=== PATIENT | male | born 1955 | race Caucasian/White ===

== ENCOUNTER 2018-11-21 06:25 | Day surgery (SDC) | payer OTHER ==
[2018-11-21] MEDS ORDERED: Ketamine HCl 50 MG/ML IV ONE (06:26)
[2018-11-21] MEDS ORDERED: ROBINUL IV ONE (06:26)
[2018-11-21] MEDS ORDERED: DIPRIVAN 200 MG/20 ML IV ONE (06:26)
[2018-11-21] MEDS ORDERED: Lactated Ringers 1,000 ML IV SCH (07:00)
[2018-11-21 09:47] VITALS: O2SAT 94
[2018-11-21 10:00] VITALS: BP 124/70; PULSE 52
--- NOTE | 2018-11-23 09:41 | HP ---
DATE OF SURGERY: 11/21/2018 ANTICIPATED PROCEDURE: Colonoscopy. HISTORY OF PRESENT ILLNESS: A patient requiring colonoscopy. Five year follow up for polyps. PAST MEDICAL HISTORY: ALLERGIES: NONE. MEDICATIONS: Crestor, hydrochlorothiazide, omeprazole, Bystolic. PAST SURGICAL HISTORY: None. SOCIAL HISTORY: Negative. FAMILY HISTORY: Negative. REVIEW OF SYSTEMS: Hypertension controlled. PHYSICAL EXAMINATION: VITAL SIGNS: Normal. CHEST: Clear. COR: Regular. ABDOMEN: No palpable organomegaly or mass. IMPRESSION: Five year screening for polyps. PLAN: Colonoscopy.
--- NOTE | 2018-11-23 10:14 | OP ---
SURGERY DATE/TIME: 11/21/2018 0848 PREOPERATIVE DIAGNOSIS: Five year follow up of polyps. POSTOPERATIVE DIAGNOSES: 1) One polyp distal sigmoid 8 mm. 2) Additional findings moderate almost severe diverticulosis of the sigmoid. PROCEDURE: Colonoscopy complete to cecum with hot polypectomy x1. SURGEON: Matheus Hummel M.D. ANESTHESIA: MAC. COMPLICATIONS: None. CONDITION: Stable. INDICATION: A patient presents for five year follow up, previous history of polyps. DESCRIPTION OF PROCEDURE: Taken to endoscopy. Anal digital examination satisfactory. Prostate satisfactory. Scope advanced to the cecum. The sigmoid was quite angulated and there was moderate almost severe diverticulosis of the sigmoid. Base of cecum, ileocecal valve and appendiceal orifice normal. Ascending, hepatic, transverse, splenic, descending, sigmoid other than diverticulosis sigmoid was satisfactory until the sigmoid-rectal junction. In the distal sigmoid there was an 8 mm polyp picked up and taken to extinction. [facility] [employer] Tender sample submitted. Rectum and anus satisfactory. The patient tolerated the procedure satisfactorily under MAC sedation. Anticipate to see in two weeks for pathology on the polyp and five year follow up on the colon.
== END 2018-11-21 10:00 | disposition home or self-care (01) ==
LOC: SDC 06:25
PROVIDERS: ATTEND Surgery
DX: Z12.11 Encounter for screening for malignant neoplasm of colon (principal); K57.32 Diverticulitis of large intestine without perforation or abscess without bleeding; K51.40 Inflammatory polyps of colon without complications; Z86.010 Personal history of colon polyps
CPT/HCPCS: J2704

== ENCOUNTER 2024-02-12 07:48 | Day surgery (SDC) | payer MEDICARE ==
--- NOTE | 2024-02-10 10:46 | HP ---
HISTORY AND PHYSICAL HISTORY OF PRESENT ILLNESS: The patient is a 68-year-old male who presents with a history of colon polyps. The patient recently found out to be BRCA positive and he complained of a right breast pain for a couple of weeks. His mother and his sisters both had breast cancer. He also has a daughter that is BRCA positive. The patient also has a personal history of melanoma. His last colonoscopy was 5 years ago. He had colon polyps. PAST MEDICAL HISTORY: GERD, hypertension, hyperlipidemia. HOME MEDICATIONS: Repatha, potassium, valsartan, amlodipine, nebivolol, omeprazole, spironolactone. ALLERGIES: Negative. PAST SURGICAL HISTORY: Left knee surgery. SOCIAL HISTORY: Daily alcohol. FAMILY HISTORY: Breast cancer, lung cancer, skin cancer. REVIEW OF SYSTEMS: CONSTITUTIONAL: Denies fevers or chills. CHEST: Denies shortness of breath. CARDIOVASCULAR: Denies any chest pain. ABDOMEN: Denies abdominal pain. PHYSICAL EXAMINATION: GENERAL: No acute distress. CHEST: Non-labored. No shortness of breath. CARDIOVASCULAR: Regular rate and rhythm. ABDOMEN: Soft. IMPRESSION: History of colon polyps and he had breast pain and he was BRCA positive. PLAN: We did order a mammogram and an ultrasound of his breast. This report was dictated for Dr. Hummel by Katie Adan NP.
[2024-02-12] MEDS: Lactated Ringers 1,000 ML IV SCH (07:53)
[2024-02-12 08:05] VITALS: RESP 16
[2024-02-12] MEDS ORDERED: Xylocaine-Mpf 2% 5 Ml Vial ONE (10:34)
[2024-02-12] MEDS ORDERED: DIPRIVAN 200 MG/20 ML IV ONE ×2 (10:34→11:22)
[2024-02-12] MEDS ORDERED: Versed 2 MG/2 ML Injection ONE (10:34)
[2024-02-12] MEDS ORDERED: GlucaGen 1 MG ONE (10:44)
[2024-02-12 11:28] VITALS: O2SAT 97
[2024-02-12 11:44] VITALS: BP 151/73; PULSE 50; TEMP 97.2
--- NOTE | 2024-02-13 13:44 | OP ---
SURGERY DATE/TIME: 02/12/2024 7302 - [id number] PREOPERATIVE DIAGNOSIS: Follow up polyps. POSTOPERATIVE DIAGNOSIS: One polyp, 3 mm, cecal. Additional diagnosis, the patient had severe sigmoid diverticulosis. PROCEDURE: Colonoscopy completed to the cecum with hot polypectomy x1. SURGEON: Matheus Hummel MD ANESTHESIA: MAC, general. COMPLICATIONS: None. CONDITION: Stable. DESCRIPTION OF PROCEDURE AND FINDINGS: Patient taken to endoscopy. MAC, general provided. Anal digital tone was satisfactory. Anus was satisfactory. Rectum was satisfactory. Sigmoid is totally lined with diverticula and some angulation with care and patience it was navigated. Descending colon was normal. Descending, transverse, ascending, base of the cecum, ileocecal valve, appendiceal orifice were initially normal. There was a 3 mm polyp on the cecum that was taken with a hot biopsy forceps. Ascending, hepatic, transverse, splenic, descending, sigmoid, rectum, anus severe sigmoid diverticulosis is noted. Patient tolerated the procedure well. Follow up in 3 years.
== END 2024-02-12 11:50 | disposition home or self-care (01) ==
LOC: SDC 07:48
PROVIDERS: ATTEND Surgery
DX: Z09 Encounter for follow-up examination after completed treatment for conditions other than malignant neoplasm (principal); Z86.010 Personal history of colon polyps; Z80.3 Family history of malignant neoplasm of breast; Z80.1 Family history of malignant neoplasm of trachea, bronchus and lung; Z80.8 Family history of malignant neoplasm of other organs or systems; K63.5 Polyp of colon; K57.30 Diverticulosis of large intestine without perforation or abscess without bleeding
CPT/HCPCS: J1610; J2250; J2704

== ENCOUNTER 2024-07-29 06:22 | Day surgery (SDC) | payer MEDICARE, OTHER ==
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
[2024-07-29] MEDS: Lactated Ringers 1,000 ML IV SCH (06:52)
[2024-07-29] MEDS: MEFOXIN 2 GM PREMIX** 2 GM/50 ML ML IV SCH (06:52)
[2024-07-29] MEDS: celeBREX 100 MG PO ONE (06:53)
[2024-07-29] MEDS: TYLENOL EXTRA STRENGTH 500 MG PO ONE (06:53)
[2024-07-29] MEDS: Decadron 4 MG PO ONE (06:53)
[2024-07-29] MEDS: NEURONTIN PO ONE (06:53)
[2024-07-29 07:12] LABS: Hematocrit 42.9 % (40.1-51.0); Hemoglobin 14.9 g/dL (13.7-17.5); Mean Cell Volume 87.4 fL (79.0-92.2); Mean Corpuscular Hemoglobin 30.3 pg (25.7-32.2); Mean Corpuscular Hgb Concent. 34.7 g/dL (32.3-36.5); Mean Platelet Volume 11.3 fL (9.4-12.4); Platelet Count 209 x10^3/uL (163-337); Red Blood Count 4.91 x10^6/uL (4.63-6.08); Red Cell Distribution Width 11.8 % (11.6-14.4); White Blood Count 5.7 x10^3/uL (4.23-9.07)
[2024-07-29 07:18] VITALS: RESP 16
[2024-07-29 07:26] LABS: ALBUMIN 4.3 g/dL (3.5-5.0); ANION GAP 9.1 MEQ/L (5-15); BILIRUBIN,TOTAL 0.8 mg/dL (0.2-1.3); Calcium 9.3 mg/dL (8.4-10.2); Creatinine 1 1.01 mg/dL (0.66-1.25); Direct Bilirubin 0.2 mg/dL (0.0-0.4); EST GLOMERULAR FILTRATION RATE 80.5 ML/MIN; Potassium 3.5 mmol/L (3.5-5.1); Total Protein 7.1 g/dL (6.3-8.2)
[2024-07-29] MEDS ORDERED: propofoL IV ONE (08:17)
[2024-07-29] MEDS ORDERED: SUBLIMAZE 100 MCG/2 ML ONE ×3 (08:25→10:18)
[2024-07-29] MEDS ORDERED: Zofran 4 MG/2 ML VIAL ONE (08:28)
[2024-07-29] MEDS ORDERED: ROCURONIUM BROMIDE IV ONE (08:28)
[2024-07-29] MEDS ORDERED: Sensorcaine 0.25% 10 ML ONE ×2 (08:32→09:26)
[2024-07-29] MEDS ORDERED: Sodium Chloride 0.9% 1000 ML 1,000 ML ONE (08:32)
[2024-07-29] MEDS ORDERED: Lactated Ringers 1,000 ML IV ONE (09:18)
[2024-07-29] MEDS ORDERED: ROBINUL ONE (09:24)
[2024-07-29] MEDS ORDERED: BRIDION 200MG/2ML IV ONE (09:51)
[2024-07-29] MEDS ORDERED: Hydromorphone 1 mg/ml Injection ONE (10:48)
[2024-07-29 12:01] VITALS: TEMP 97.2
[2024-07-29 12:12] VITALS: BP 151/80; PULSE 92; O2SAT 93
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
== END 2024-07-29 12:20 | disposition home or self-care (01) ==
LOC: SDC 06:22
PROVIDERS: ATTEND Surgery
DX: N20.2 Calculus of kidney with calculus of ureter (principal); K76.0 Fatty (change of) liver, not elsewhere classified
CPT/HCPCS: 36415; 80048; 80076; 85027; 93005; J0694; J1171; J2405; J2704; J3010; L0625; A9270-GY

== ENCOUNTER 2024-10-28 09:54 | Day surgery (SDC) | payer MEDICARE, OTHER ==
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
[2024-10-28] MEDS ORDERED: NEURONTIN ONE (10:15)
[2024-10-28] MEDS ORDERED: CEFOXITIN IV ONE (10:15)
[2024-10-28] MEDS ORDERED: celeBREX 100 MG ONE (10:15)
[2024-10-28] MEDS ORDERED: Decadron 4 MG ONE (10:15)
[2024-10-28] MEDS ORDERED: NACL IV ONE (10:15)
[2024-10-28] MEDS ORDERED: TYLENOL EXTRA STRENGTH 500 MG ONE (10:15)
[2024-10-28] MEDS ORDERED: Lactated Ringers 1,000 ML IV ONE (10:16)
[2024-10-28] MEDS: TYLENOL EXTRA STRENGTH 500 MG PO ONE (10:25)
[2024-10-28] MEDS: NEURONTIN PO ONE (10:25)
[2024-10-28] MEDS: Decadron 4 MG PO ONE (10:25)
[2024-10-28] MEDS: celeBREX 100 MG PO ONE (10:26)
[2024-10-28] MEDS: Lactated Ringers 1,000 ML IV ONE (10:29)
[2024-10-28] MEDS: CEFAZOLIN 2 GM/100 ML NaCl 2 GM/100 ML IVPB IV SCH (10:30)
[2024-10-28 11:12] LABS: Creatinine 1 0.82 mg/dL (0.66-1.25); EST GLOMERULAR FILTRATION RATE 95.1 ML/MIN; Potassium 3.6 mmol/L (3.5-5.1)
[2024-10-28] MEDS ORDERED: propofoL IV ONE (12:38)
[2024-10-28] MEDS ORDERED: SUBLIMAZE 100 MCG/2 ML ONE ×2 (12:43→13:47)
[2024-10-28] MEDS ORDERED: ROCURONIUM BROMIDE IV ONE (12:45)
[2024-10-28] MEDS ORDERED: Zofran 4 MG/2 ML VIAL ONE (12:45)
[2024-10-28] MEDS ORDERED: dexAMETHasone sodium phosphate ONE (12:45)
[2024-10-28] MEDS ORDERED: Sensorcaine 0.25% 10 ML ONE (13:07)
[2024-10-28] MEDS ORDERED: TRANDATE 20 MG/4 ML SYRINGE IV ONE (13:15)
[2024-10-28] MEDS ORDERED: BRIDION 200MG/2ML IV ONE (14:18)
[2024-10-28 15:50] VITALS: PULSE 61; RESP 16
[2024-10-28 16:07] VITALS: BP 191/102; O2SAT 94
[2024-10-28 16:13] VITALS: TEMP 97.2
--- NOTE | 2024-10-29 12:14 | OP ---
SURGERY DATE/TIME: 10/28/2024 [id number] PREOPERATIVE DIAGNOSIS: Bilateral subareolar nipple masses with strong family history for positive breast carcinoma genetics. POSTOPERATIVE DIAGNOSIS: Bilateral subareolar nipple masses with strong family history for positive breast carcinoma genetics. PROCEDURE: Bilateral mastectomy including nipple, areola, small ellipse of skin, and all the existing breast tissue. This was bilateral. SURGEON: Matheus Hummel MD ACCOUNTING INTERN: Medical Student 3. ANESTHESIA: General. COMPLICATIONS: None. CONDITION: Stable. DRAINS: None. INDICATIONS: The patient has developed painful bilateral breast buds. He has stopped some of his medication. He has had quite a bit of patience with this. They are still present. They are pick pulling machine tender. He also has a severe family history of breast cancer genetics. With this in mind, we would like to proceed with bilateral total or bilateral simple mastectomies including all the breast tissue and including the areola and nipple, not specifically including any lymph nodes, although often times the lymph node is still incidentally removed with a total mastectomy. He is aware of this and he knows that the nipples and areolas will be gone and technically he will be cosmetically flat. He is not very appalled by this. He does wear a t-shirt in the summer when he is out at all for skin protection anyway, so he is really not very concerned. DESCRIPTION OF PROCEDURE AND FINDINGS: Both breasts were marked. He was taken to surgery, general anesthetic, he was prepped and draped, time-out performed. Right side addressed first. Elliptical flaps have been marked on both sides so that they would be symmetrical. Skin, subcutaneous, Naresh ligaments were taken and the subcutaneous was from the breast tissue. The axillary envelope had been completed at this time. The fascia was scored and the breast and the fascia was rolled from cephalad-caudad, left to right and from right to left until the entire breast bud was removed. The right side skin was . Hemostasis satisfactory. Closed with inverting 3-0 Vicryl and glue. Very similar to dissection on the left, similar skin flap had been marked. Similar dissection. It was elevated upward. Hemostasis was excellent. It was irrigated. It was closed with inverting 3-0 Vicryl and glue. Sterile dressing applied. Binder applied. The patient tolerated the procedure satisfactorily. Findings discussed with the and daughters in the waiting room, was very satisfactory and encouraging.
== END 2024-10-28 16:18 | disposition home or self-care (01) ==
LOC: SDC 09:54
PROVIDERS: ATTEND Surgery
DX: N63.42 Unspecified lump in left breast, subareolar (principal); N63.41 Unspecified lump in right breast, subareolar; Z80.3 Family history of malignant neoplasm of breast
CPT/HCPCS: 36415; 80048; J0690; J0694; J1100; J2405; J2704; J3010; L0625; A9270-GY